=== PATIENT | male | born 1970 | race Caucasian/White ===

== ENCOUNTER → 2016-11-06 | Outpatient (CLI) | payer OTHER ==
[2016-11-06 08:35] LABS: CHOLESTEROL 198.23 mg/dL (0-200); Direct HDL 25 mg/dL (>40); TRIGLYCERIDES 331 mg/dL (<150)
[2016-11-06 08:41] LABS: DIRECT LDL 112 mg/dL (<100)
[2016-11-06 08:42] LABS: VLDL CHOLESTEROL 66.2 mg/dL (10-31)
== END ==
LOC: OD 07:10
PROVIDERS: ATTEND Family Medicine Geriatric Medicine
DX: E78.5 Hyperlipidemia, unspecified (principal); E03.9 Hypothyroidism, unspecified
CPT/HCPCS: 36415; 80061; 84443

== ENCOUNTER 2018-08-03 08:51 | Emergency (ER) | payer BC, OTHER ==
[2018-08-03] MEDS ORDERED: NITROGLYCERIN 0.4 MG/TAB 25 TAB/BOTTLE SL PRN (09:23)
[2018-08-03] MEDS ORDERED: ASPIRIN 81 MG TABLET, CHEWABLE PO ONE (09:23)
--- NOTE | 2018-08-03 09:26 | ER Document Report ---
ED Medical Screen (RME) - General TRAVEL OUTSIDE OF THE [place] IN LAST 30 DAYS: No - Related Data Home Medications: aspirin. clopidogrel. atorvastatin. levothyroxine <JEM MCDOWELL - Last Filed: 08/03/18 09:23> <BO KINCAID - Last Filed: 08/03/18 12:04> - General Chief Complaint: Chest Pain Stated Complaint: CHEST PAIN, ARM NUMBNESS, SOB Time Seen by Provider: 08/03/18 09:18 Notes: 47-year-old male with coronary artery disease with x1 stent placed x4 months ago that presents today with complaints of sharp stabbing chest pain that began last week. Patient states that his pain has been pretty constant and last night he developed left arm tingling. Patient states that his symptoms today are worse then when he had a stent placed. Patient states he has had associated shortness of breath. Patient is on Plavix and baby aspirin daily and has not missed any dosages. Patient took nitroglycerin last night and today with no change in his pain. I have greeted and performed a rapid initial assessment of this patient. A comprehensive ED assessment and evaluation of the patient, analysis of test results, and completion of the medical decision making process will be conducted by additional ED providers. Review of systems: Constitutional: No symptoms reported EENT: No symptoms reported Cardiovascular: Chest pain with tingling radiating down left arm. Respiratory: Shortness of breath. Gastrointestinal: No symptoms reported Genitourinary: No symptoms reported Musculoskeletal: No symptoms reported Skin: No symptoms reported Hematologic/Lymphatic: No symptoms reported Neurological/Psychological: No symptoms reported Yes All other systems reviewed and negative PHYSICAL EXAM GENERAL: Alert, interacts well. No acute distress. HEAD: Normocephalic, atraumatic. EYES: Pupils equal, round, and reactive to light. Extraocular movements intact. ENT: Oral mucosa moist, tongue midline. NECK: Full range of motion. Supple. Trachea midline. HEART: Regular rate and rhythm. No murmurs, gallops, or rubs. LUNGS: No respiratory distress. Clear and equal breath sounds bilaterally. No wheezes, rhonchi, or rales. EXTREMITIES: Moves all 4 extremities spontaneously. NEUROLOGICAL: Alert and oriented x3. Normal speech. PSYCH: Normal affect, normal mood. SKIN: Warm, dry, normal turgor. No rashes or lesions noted. (JEM MCDOWELL) - Related Data Allergies/Adverse Reactions: No Known Allergies Allergy (Unverified 08/03/18 08:53) Past Medical History - Social History Chew tobacco use (# tins/day): No Frequency of alcohol use: None Drug Abuse: None Renal/ Medical History: Denies: Hx Peritoneal Dialysis Past Surgical History: Reports: Hx Cardiac Surgery - stent <JEM MCDOWELL - Last Filed: 08/03/18 09:23> - Vital signs Vitals: Temp Pulse Resp BP Pulse Ox 97.7 F 72 16 131/79 H 100 08/03/18 09:01 08/03/18 09:01 08/03/18 09:01 08/03/18 09:01 08/03/18 09:01 Course - Laboratory Result Diagrams: 08/03/18 09:32 08/03/18 09:32 <BO KINCAID - Last Filed: 08/03/18 12:04> - Vital Signs Vital signs: Temp Pulse Resp BP Pulse Ox 97.7 F 72 21 H 127/81 H 98 08/03/18 09:01 08/03/18 09:01 08/03/18 11:01 08/03/18 11:01 08/03/18 11:01 - Laboratory Laboratory results interpreted by me: 08/03/18 09:32 WBC 12.8 H Absolute Neutrophils 9.6 H Doctor's Discharge <JEM MCDOWELL - Last Filed: 08/03/18 09:23> <BO KINCAID - Last Filed: 08/03/18 12:04> - Discharge Referrals: KAILA JOHNSON MD [COMMUNITY BASED STAFF] - Follow up as needed
--- NOTE | 2018-08-03 09:46 | RADIOLOGY REPORT (SQ) ---
EXAM DESCRIPTION: CHEST SINGLE VIEW COMPLETED DATE/TIME: 08/03/2018 9:37 am REASON FOR STUDY: chest pain, SOB, h/o stent COMPARISON: Chest films 01/08/2008 EXAM PARAMETERS: NUMBER OF VIEWS: One view. TECHNIQUE: Single frontal radiographic view of the chest acquired. RADIATION DOSE: NA LIMITATIONS: None. FINDINGS: LUNGS AND PLEURA: No opacities, masses or pneumothorax. No pleural effusion. MEDIASTINUM AND HILAR STRUCTURES: No masses. Contour normal. HEART AND VASCULAR STRUCTURES: Heart normal in size. Normal vasculature. BONES: No acute findings. HARDWARE: None in the chest. OTHER: No other significant finding. IMPRESSION: NO ACUTE RADIOGRAPHIC FINDING IN THE CHEST. TECHNICAL DOCUMENTATION: JOB ID: [id number] [employer]- All Rights Reserved Reading location - IP/workstation name: [email or web address]
[2018-08-03 09:49] LABS: ABSOLUTE BASOPHILS # (AUTO) 0.1 10^3/uL (0.0-0.2); ABSOLUTE EOSINOPHILS # (AUTO) 0.3 10^3/uL (0.0-0.6); ABSOLUTE LYMPHOCYTES (AUTO) 2.4 10^3/uL (0.5-4.7); ABSOLUTE MONOCYTES (AUTO) 0.5 10^3/uL (0.1-1.4); ABSOLUTE NEUT (AUTO) 9.6 10^3/uL (1.7-8.2); BASOPHILS % (AUTO) 0.6 % (0-2); HEMATOCRIT 44.9 % (37.9-51.0); HEMOGLOBIN 16.1 g/dL (13.5-17.0); LYMPHOCYTES % (AUTO) 18.8 % (13-45); MEAN CORPUSCULAR HEMOGLOBIN 32.4 pg (27.0-33.4); MEAN CORPUSCULAR VOLUME 90 fl (80-97); MONOCYTES % (AUTO) 4.2 % (3-13); PLATELET COUNT 255 10^3/uL (150-450); RED BLOOD COUNT 4.98 10^6/uL (4.35-5.55); RED CELL DISTRIBUTION WIDTH 13.2 % (11.5-14.0); SEGMENTED NEUTROPHILS % (AUTO) 74.4 % (42-78); TOTAL CELLS COUNTED % (AUTO) 100 %; WHITE BLOOD COUNT 12.8 10^3/uL (4.0-10.5)
[2018-08-03 10:03] LABS: ALANINE AMINOTRANSFERASE 34 U/L (21-72); ALBUMIN 4.6 g/dL (3.5-5.0); ALKALINE PHOSPHATASE 83 U/L (38-126); ANION GAP 8 (5-19); ASPARTATE AMINO TRANSFERASE 48 U/L (17-59); BILIRUBIN,DIRECT 0.3 mg/dL (0.0-0.4); BILIRUBIN,TOTAL 0.9 mg/dL (0.2-1.3); BLOOD UREA NITROGEN 20 mg/dL (7-20); CALCIUM 9.4 mg/dL (8.4-10.2); CARBON DIOXIDE 28 mmol/L (22-30); CHLORIDE 105 mmol/L (98-107); CREATINE KINASE 113 U/L (55-170); GLUCOSE 105 mg/dL (75-110); POTASSIUM 3.9 mmol/L (3.6-5.0); TOTAL PROTEIN 7.8 g/dL (6.3-8.2)
[2018-08-03 10:15] LABS: CREATINE KINASE MB 0.63 ng/mL (<4.55)
[2018-08-03 10:17] LABS: TROPONIN I < 0.012 ng/mL
--- NOTE | 2018-08-03 13:16 | EKG REPORT ---
SEVERITY:- NORMAL ECG - SINUS RHYTHM : Confirmed by: Ceci Whitman 03-Aug-2018 13:15:02
[2018-08-03] MEDS ORDERED: MORPHINE SULFATE 10 MG/ML INJ IV ONE (15:01)
--- NOTE | 2018-08-03 15:27 | ER Document Report ---
ED Cardiac - General Chief Complaint: Chest Pain Stated Complaint: CHEST PAIN, ARM NUMBNESS, SOB Time Seen by Provider: 08/03/18 09:18 Mode of Arrival: Ambulatory Information source: Patient TRAVEL OUTSIDE OF THE [place] IN LAST 30 DAYS: No - HPI Patient complains to provider of: Other - 47-year-old man with a past medical history significant for cardiac catheterization 6 months prior as well as the deployment of a stent that presents for evaluation of pain over the last several days which he says has felt similar to angina in the past. He denies any li ghtheadedness diaphoresis nausea associated with it says that she is to deep pain in the left side of his chest which felt similar to the angina which prompted them to do a catheterization on him in the first place. No fevers no chills no other symptoms. - Related Data Allergies/Adverse Reactions: No Known Allergies Allergy (Unverified 08/03/18 08:53) Home Medications: aspirin. clopidogrel. atorvastatin. levothyroxine Past Medical History - General Information source: Patient - Social History Smoking Status: Never Smoker Chew tobacco use (# tins/day): No Frequency of alcohol use: None Drug Abuse: None Family History: CAD, Hyperlipidemia, Hypertension Patient has suicidal ideation: No Patient has homicidal ideation: No Renal/ Medical History: Denies: Hx Peritoneal Dialysis Past Surgical History: Reports: Hx Cardiac Surgery - stent Review of Systems - Review of Systems -: Yes All other systems reviewed and negative Physical Exam - Vital signs Vitals: Temp Pulse Resp BP Pulse Ox 97.7 F 72 16 131/79 H 100 08/03/18 09:01 08/03/18 09:01 08/03/18 09:01 08/03/18 09:01 08/03/18 09:01 Interpretation: Normal - General General appearance: Appears well, Alert - HEENT Head: Normocephalic, Atraumatic Eyes: Normal Pupils: PERRL - Respiratory Respiratory status: No respiratory distress Chest status: Nontender Breath sounds: Normal Chest palpation: Normal - Cardiovascular Rhythm: Regular Heart sounds: Normal auscultation Murmur: No - Abdominal Inspection: Normal Distension: No distension Bowel sounds: Normal Tenderness: Nontender Organomegaly: No organomegaly - Back Back: Normal, Nontender - Extremities General upper extremity: Normal inspection, Nontender, Normal color, Normal ROM, Normal temperature General lower extremity: Normal inspection, Nontender, Normal color, Normal ROM, Normal temperature, Normal weight bearing. No: Eryn's sign - Neurological Neuro grossly intact: Yes Cognition: Normal Orientation: AAOx4 Katarzyna Coma Scale Eye Opening: Spontaneous [place] Coma Scale Verbal: Oriented Katarzyna Coma Scale Motor: Obeys Commands [place] Coma Scale Total: 15 Speech: Normal Motor strength normal: LUE, RUE, LLE, RLE Sensory: Normal - Psychological Associated symptoms: Normal affect, Normal mood - Skin Skin Temperature: Warm Skin Moisture: Dry Skin Color: Normal Course - Re-evaluation Re-evalutation: 08/03/18 17:04 47-year-old man the presents for pain in the left side of his chest which he says feels similar to previous episode of angina. On examination the man is in no obvious distress, he was given nitroglycerin which did not change the character in his chest pain. Through triage an EKG was obtained as well as cardiac markers for this gentleman. His EKG is nondiagnostic and normal. His history is concerning, at a minimum for a 1 on heart score His risk factors known CAD strong family history and hyperlipidemia can be a score of 2, his age conveys a score of 1 His troponin is 0 Is a heart score of 4. I discussed at length with this gentleman that I am concerned he has angina and is developing an unstable angina which could be a predecessor to a massive heart attack. Specifically I said I would like to call his airplane designer admit him to the hospital and continue to monitor him. He said that if he is not having a heart attack right now he does not want to stay in the hospital, I stated that I do not know whether or not he is having a heart attack right now only that the markers have been normal so far. He says that he does not wish to stay in the hospital and that he will come back if he gets worse. Of note is that the gentleman had 2- troponins however I did tell him that I believe he will leave here and potentially dropped . He acknowledged that he may leave here and . Says that he has no desire to stay in the hospital at this time and is not willing to stay regardless of what I say. At the time of discharge this gentleman was offered further testing, admission to the hospital, further monitoring, administration of morphine for his pain. He is still having some discomfort at the time of discharge. He was given return precautions and encouraged not to leave again. - Vital Signs Vital signs: Temp Pulse Resp BP Pulse Ox 98.5 F 60 19 132/88 H 99 08/03/18 15:35 08/03/18 15:35 08/03/18 15:35 08/03/18 15:35 08/03/18 15:35 - Laboratory Result Diagrams: 08/03/18 09:32 08/03/18 09:32 Laboratory results interpreted by me: 08/03/18 09:32 WBC 12.8 H Absolute Neutrophils 9.6 H Discharge - Discharge Clinical Impression: Chest pain Qualifiers: Chest pain type: unspecified Qualified Code(s): R07.9 - Chest pain, unspecified Condition: Stable Disposition: HOME, SELF-CARE
[2018-08-03 15:49] VITALS: BP 132/88
== END 2018-08-03 15:35 | disposition home or self-care (01) ==
LOC: ER 08:51 → UNDOADMIN 15:32 → EH 15:32 → UNDODISIN 15:35
DX: R07.9 Chest pain, unspecified (principal)
CPT/HCPCS: 36415; 71045; 80053; 82550; 82553; 84484; 85025; 93005; 93010; 99285

== ENCOUNTER 2020-06-16 19:32 | Emergency (ER) | payer BC ==
[2020-06-16 19:40] VITALS: BP 141/77
--- NOTE | 2020-06-16 20:17 | ER Document Report ---
ED Extremity Problem, Lower - General Chief Complaint: Leg Pain Stated Complaint: PAIN IN LEFT LEG Time Seen by Provider: 06/16/20 19:42 Primary Care Provider: SELVIN MOONEY PA-C [Primary Care Provider] - Follow up as needed TRAVEL OUTSIDE OF THE [place] IN LAST 30 DAYS: No - HPI Notes: Patient is a 49 y/o male with a hx of cardiac stents who presents for pain to his left leg. Patient noted a spider vein to his left lower thigh one month ago that became painful today. He denies leg swelling, chest pain, shortness of breath, nausea, vomiting and fever. Patient was on clopidogrel for his cardiac stents but was taken off it earlier this year as he no longer needed it. 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 He denies using compression stockings. Patient denies tobacco use. - Related Data Allergies/Adverse Reactions: No Known Allergies Allergy (Unverified 08/03/18 08:53) Home Medications: levothyroxine, renaxiole, atorvastatin Past Medical History - General Information source: Patient - Social History Smoking Status: Never Smoker Family History: CAD, Hyperlipidemia, Hypertension Renal/ Medical History: Denies: Hx Peritoneal Dialysis Past Surgical History: Reports: Hx Cardiac Surgery - stent Review of Systems - Review of Systems Constitutional: No symptoms reported EENT: No symptoms reported Cardiovascular: No symptoms reported Respiratory: No symptoms reported Gastrointestinal: No symptoms reported Genitourinary: No symptoms reported Male Genitourinary: No symptoms reported Musculoskeletal: See HPI Skin: No symptoms reported Hematologic/Lymphatic: No symptoms reported Neurological/Psychological: No symptoms reported Physical Exam - Vital signs Vitals: Temp Pulse Resp BP Pulse Ox 98.6 F 80 16 141/77 H 100 06/16/20 19:37 06/16/20 19:37 06/16/20 19:37 06/16/20 19:37 06/16/20 19:37 - Notes Notes: PHYSICAL EXAMINATION: VITALS: Vitals reviewed and within normal limits. GENERAL: Well-appearing, well-nourished and in no acute distress. HEAD: Atraumatic, normocephalic. LUNGS: Breath sounds clear to auscultation bilaterally and equal. No wheezes rales or rhonchi. HEART: Regular rate and rhythm without murmurs. ABDOMEN: Soft, nontender, normoactive bowel sounds. No guarding, no rebound. No masses appreciated. EXTREMITIES: Left lower extremitiy - point tenderness to the left medial, distal thigh over a visible spider vein. No palpable vein. Full ROM of BLE. No swelling or erythema noted to the LLE. Palpable DP bilaterally. No cyanosis. PSYCH: Normal mood, normal affect. SKIN: Warm, Dry, normal turgor, no rashes or lesions noted. Course - Re-evaluation Re-evalutation: Patient is a 49 y/o male with a hx of cardiac stents who presents with left thigh pain that began one month ago and worsened today. Patient mildly hypertensive with a BP of 141/74. Vital signs are otherwise unremarkable and within normal limits. On exam, point tenderness to the left medial, distal thigh over a visible spider vein. No palpable vein. Full ROM of BLE. No swelling or erythema noted to the left calf or rest of the leg. Left Doppler US done ordered to rule out DVT. 06/16/20 21:15 Patient eloped prior to receiving the Doppler US. - Vital Signs Vital signs: Temp Pulse Resp BP Pulse Ox 98.6 F 80 16 141/77 H 100 06/16/20 19:37 06/16/20 19:37 06/16/20 19:37 06/16/20 19:37 06/16/20 19:37 Discharge - Discharge Clinical Impression: Left thigh pain Disposition: ELOPED Referrals: SELVIN MOONEY PA-C [Primary Care Provider] - Follow up as needed
== END 2020-06-16 21:11 | disposition left against medical advice (07) ==
LOC: ER 19:32
DX: M79.652 Pain in left thigh (principal); M79.605 Pain in left leg; Z79.899 Other long term (current) drug therapy
CPT/HCPCS: 99281